=== PATIENT | male | born 1970 | race Caucasian/White ===

== ENCOUNTER 2020-08-18 06:06 | Emergency (ER) | payer BC ==
[2020-08-18 06:30] LABS: HEMOGLOBIN 18.6 gm/dl (14.0-17.5); RED BLOOD COUNT 5.89 M/UL (4.20-5.50); WHITE BLOOD COUNT 9.6 K/UL (4.5-11.0)
[2020-08-18] MEDS ORDERED: HYDROCODON-ACE1 EAC4 PO (09:49)
[2020-08-18] MEDS ORDERED: ZOFRAN ODT 4 MG4 MG PO (09:49)
== END 2020-08-18 10:25 | disposition home or self-care (01) ==
LOC: ER1 06:06
PROVIDERS: Emergency Medicine
DX: N20.2 Calculus of kidney with calculus of ureter (principal)
CPT/HCPCS: 80053; 81001; 83690; 85025; 96374; 96375; 99284; J1885; J2270; J2405